=== PATIENT | male | born 1965 | race Caucasian/White ===

== ENCOUNTER 2020-11-01 09:11 | Emergency (ER) | payer BC ==
[2020-11-01] MEDS ORDERED: FLU VACC QS2020-21(6MOS UP)/PF 60 MCG/0.5 ML SYRINGE IM ONE (09:30)
[2020-11-01] MEDS ORDERED: Ondansetron 4 MG/2 ML SDV IVPUSH ONE (09:33)
[2020-11-01] MEDS ORDERED: Sodium Chloride 0.9% 10 ML Syringe FLUSH PRN (09:33)
[2020-11-01] MEDS ORDERED: Ketorolac 30 MG/ML SDV IVPUSH ONE (09:34)
[2020-11-01] MEDS ORDERED: HYDROmorphone 1 MG/ML Syringe IVPUSH ONE (09:34)
--- NOTE | 2020-11-01 09:39 | EDM.PDOC ---
ED HPI GENERAL MEDICAL PROBLEM - General Chief Complaint: Flank Pain Stated Complaint: R SIDE FLANK PAIN Time Seen by Provider: 11/01/20 09:29 Source of Information: Reports: Patient History Limitations: Reports: No Limitations - History of Present Illness INITIAL COMMENTS - FREE TEXT/NARRATIVE: The patient presents with right sided flank pain. This started about 1.5hours ago. He has nausea and vomiting with it. He has a history of kidney stones. He has no fever, chills, cough, chest pain or shortness of breath. He has no dysuria. His urine is darker. He does have some irritation at the tip of his penis. Onset: Sudden Duration: Hour(s): (1.5) Location: Reports: Back (rigth flank) Quality: Reports: Sharp Severity: Severe Improves with: Reports: None Worsens with: Reports: None Associated Symptoms: Reports: Nausea/Vomiting. Denies: Chest Pain, Cough, Fever/Chills, Headaches, Shortness of Breath Right Flank Pain Score (Numeric/FACES): 6 - Related Data Allergies Allergy/AdvReac Type Severity Reaction Status Date / Time No Known Allergies Allergy Verified 11/01/20 09:21 Home Meds: Home Meds Aspirin 81 mg PO BEDTIME 06/04/19 [History] Irbesartan 300 mg PO BEDTIME 06/04/19 [History] atorvaSTATin [Lipitor] 10 mg PO BEDTIME 06/04/19 [History] hydroCHLOROthiazide [Hydrochlorothiazide] 12.5 mg PO DAILY 06/04/19 [History] Hydrocodone/Acetaminophen [Hydrocodone-Acetamin 5-325 mg] 1 - 2 each PO Q6HR PRN #20 tablet 11/01/20 [Rx] Tamsulosin HCl [Flomax] 0.4 mg PO DAILY #7 cap.er.24h 11/01/20 [Rx] Past Medical History Cardiovascular History: Reports: High Cholesterol, Hypertension Genitourinary History: Reports: Renal Calculus Endocrine/Metabolic History: Reports: Obesity/BMI 30+ - Past Surgical History HEENT Surgical History: Reports: Oral Surgery GI Surgical History: Reports: Appendectomy, Hernia, Inguinal Social & Family History - Tobacco Use Tobacco Use Status *Q: Never Tobacco User - Caffeine Use Caffeine Use: Reports: None - Recreational Drug Use Recreational Drug Use: No - Living Situation & Occupation Living situation: Reports: , with Spouse, with Family (2 kids) 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 Denies: Abdominal Pain : Reports: Flank Pain (right). Denies: Dysuria, Frequency Musculoskeletal: Reports: Back Pain (right flank) ED EXAM, RENAL/ - Physical Exam Exam: See Below Exam Limited By: No Limitations General Appearance: Alert, No Apparent Distress Ears: Normal External Exam Nose: Normal Inspection Head: Atraumatic, Normocephalic Neck: Normal Inspection, Supple, Non-Tender Respiratory/Chest: No Respiratory Distress, Lungs Clear, Normal Breath Sounds Cardiovascular: Regular Rate, Rhythm, No Edema, No Murmur GI/Abdominal: Soft, Non-Tender, No Organomegaly, No Mass Back Exam: CVA Tenderness (R) Course - Vital Signs Last Recorded V/S: Last Vital Signs Temp 97 F 11/01/20 09:18 Pulse 77 11/01/20 09:18 Resp 18 11/01/20 09:18 BP 147/96 H 11/01/20 09:18 Pulse Ox 99 11/01/20 09:18 - Orders/Labs/Meds Orders: Active Orders 24 hr Category Date Time Status Influenza Vaccine Charge [RC] .DISCHARGE Care 11/01/20 09:24 Active Peripheral IV Care [RC] . DIRECTED Care 11/01/20 09:34 Active UA W/MICROSCOPIC [URIN] Stat Lab 11/01/20 09:33 Ordered Sodium Chloride 0.9% [Normal Saline] 1,000 ml Med 11/01/20 09:45 Active IV ASDIRECTED Sodium Chloride 0.9% [Saline Flush] Med 11/01/20 09:33 Active 10 ml FLUSH ASDIRECTED PRN ED Antiemetic Medication Reflex [OM.PC] Stat Oth 11/01/20 09:34 Ordered Peripheral IV Insertion Adult [OM.PC] Stat Oth 11/01/20 09:33 Ordered Medication Orders Sodium Chloride (Normal Saline) 1,000 mls @ 125 mls/hr IV ASDIRECTED [facility] Admin: 11/01/20 10:01 Dose: 125 mls/hr Documented by: MONTY Sodium Chloride (Saline Flush) 10 ml FLUSH ASDIRECTED PRN PRN Reason: Keep Vein Open Last Admin: 11/01/20 10:01 Dose: 10 ml Documented by: MONTY Labs: Laboratory Tests 11/01/20 11/01/20 Range/Units 09:20 09:20 WBC 8.54 (4.23-9.07) K/mm3 RBC 5.31 (4.63-6.08) M/mm3 Hgb 16.0 (13.7-17.5) gm/dl Hct 46.9 (40.1-51.0) % MCV 88.3 (79.0-92.2) fl MCH 30.1 (25.7-32.2) pg MCHC 34.1 (32.2-35.5) g/dl RDW Std Deviation 42.9 (35.1-43.9) fL Plt Count 304 (163-337) K/mm3 MPV 9.1 L (9.4-12.3) fl Neut % (Auto) 65.8 (34.0-67.9) % Lymph % (Auto) 22.6 (21.8-53.1) % Garrard % (Auto) 8.5 (5.3-12.2) % Eos % (Auto) 2.2 (0.8-7.0) Baso % (Auto) 0.4 (0.1-1.2) % Neut # (Auto) 5.62 H (1.78-5.38) K/mm3 Lymph # (Auto) 1.93 (1.32-3.57) K/mm3 Garrard # (Auto) 0.73 (0.30-0.82) K/mm3 Eos # (Auto) 0.19 (0.04-0.54) K/mm3 Baso # (Auto) 0.03 (0.01-0.08) K/mm3 Sodium 142 (136-145) mEq/L Potassium 3.5 (3.5-5.1) mEq/L Chloride 104 (98-107) mEq/L Carbon Dioxide 25 (21-32) mEq/L Anion Gap 16.5 H (5-15) BUN 18 (7-18) mg/dL Creatinine 1.4 H (0.7-1.3) mg/dL Est Cr Clr Drug Dosing 70.13 mL/min Estimated GFR (MDRD) 53 (>60) mL/min BUN/Creatinine Ratio 12.9 L (14-18) Glucose 124 H (74-106) mg/dL Calcium 8.9 (8.5-10.1) mg/dL Total Bilirubin 0.8 (0.2-1.0) mg/dL AST 23 (15-37) U/L ALT 44 (16-63) U/L Alkaline Phosphatase 71 (46-116) U/L Total Protein 7.8 (6.4-8.2) g/dl Albumin 4.0 (3.4-5.0) g/dl Globulin 3.8 gm/dL Albumin/Globulin Ratio 1.1 (1-2) Lipase 119 (73-393) U/L Meds: Medications Generic Name Dose Route Start Last Admin Trade Name Freq PRN Reason Stop Dose Admin Sodium Chloride 1,000 mls @ 125 mls/hr 11/01/20 09:45 11/01/20 10:01 Normal Saline IV 125 mls/hr ASDIRECTED TOBIN Administration Sodium Chloride 10 ml 11/01/20 09:33 11/01/20 10:01 Saline Flush FLUSH 10 ml ASDIRECTED PRN Administration Keep Vein Open Discontinued Medications Generic Name Dose Route Start Last Admin Trade Name Freq PRN Reason Stop Dose Admin Hydromorphone HCl 1 mg 11/01/20 09:34 11/01/20 09:59 Dilaudid IVPUSH 11/01/20 09:35 1 mg ONETIME ONE Administration Influenza Virus Vaccine 60 mcg 11/01/20 09:30 11/01/20 10:06 Fluzone Quad [id number] Syringe IM 11/01/20 09:31 60 mcg .ONCE ONE Administration Ketorolac Tromethamine 30 mg 11/01/20 09:34 11/01/20 10:02 Toradol IVPUSH 11/01/20 09:35 30 mg ONETIME ONE Administration Ondansetron HCl 4 mg 11/01/20 09:33 11/01/20 10:02 Zofran IVPUSH 11/01/20 09:34 4 mg ONETIME ONE Administration - Re-Assessments/Exams Free Text/Narrative Re-Assessment/Exam: 11/01/20 09:38 I ordered an IV NS at 125mL/hr, zofran 4mg IV, toradol 30mg IV, dilaudid 1mg IV, UA, labs and a CT of his abdomen and pelvis without IV and oral contrast. 11/01/20 11:38 His labs look good. His CT shows small nonobstructing stone within the mid right kidney. Small obstructing ureteral stone within the distal right ureter close to the UVJ measuring approximately 2.5-3mm. Other findings that are incidental. He cannot urinate for us. I will do an outpatient order. Departure - Departure Time of Disposition: 11:45 Disposition: Home, Self-Care 01 Condition: Good Clinical Impression: Ureteric colic, Kidney stone on right side, Ureteral calculus, right - Discharge Information *PRESCRIPTION DRUG MONITORING PROGRAM REVIEWED*: Not Applicable *COPY OF PRESCRIPTION DRUG MONITORING REPORT IN PATIENT CAROL: Not Applicable Prescriptions: Tamsulosin HCl [Flomax] 0.4 mg PO DAILY #7 cap.er.24h Hydrocodone/Acetaminophen [Hydrocodone-Acetamin 5-325 mg] 1 - 2 each PO Q6HR PRN #20 tablet PRN Reason: Pain Referrals: Viral Garcia MD [Primary Care Provider] - 1 Week Forms: ED Department Discharge Additional Instructions: Drink plenty of fluids. Take the flomax daily. Take motrin or tylenol for pain. If that does not help, try the hydrocodone. Please return if you are worse. Sepsis Event Note (ED) - Evaluation Sepsis Screening Result: No Definite Risk - Focused Exam Vital Signs: Vital Signs Temp Pulse Resp BP Pulse Ox 11/01/20 09:18 97 F 77 18 147/96 H 99 - My Orders Last 24 Hours: My Active Orders 11/01/20 09:24 Influenza Vaccine Charge [RC] .DISCHARGE 11/01/20 09:33 UA W/MICROSCOPIC [URIN] Stat Sodium Chloride 0.9% [Saline Flush] 10 ml FLUSH ASDIRECTED PRN Peripheral IV Insertion Adult [OM.PC] Stat 11/01/20 09:34 Peripheral IV Care [RC] . DIRECTED ED Antiemetic Medication Reflex [OM.PC] Stat 11/01/20 09:45 Sodium Chloride 0.9% [Normal Saline] 1,000 ml IV ASDIRECTED - Assessment/Plan Last 24 Hours: My Active Orders 11/01/20 09:24 Influenza Vaccine Charge [RC] .DISCHARGE 11/01/20 09:33 UA W/MICROSCOPIC [URIN] Stat Sodium Chloride 0.9% [Saline Flush] 10 ml FLUSH ASDIRECTED PRN Peripheral IV Insertion Adult [OM.PC] Stat 11/01/20 09:34 Peripheral IV Care [RC] . DIRECTED ED Antiemetic Medication Reflex [OM.PC] Stat 11/01/20 09:45 Sodium Chloride 0.9% [Normal Saline] 1,000 ml IV ASDIRECTED
[2020-11-01] MEDS ORDERED: Sodium Chloride 0.9% 1,000 ML IV SCH (09:45)
--- NOTE | 2020-11-01 10:17 | CT ---
CT abdomen and pelvis Technique: Multiple axial sections were obtained from above the dome of the diaphragm inferiorly through the pubic symphysis. Intravenous and oral contrast was not utilized. Reconstructed coronal and axial images were obtained. Findings: Kidneys: Small 2-3 mm calcification is seen within the mid right kidney. Left kidney shows no abnormal calcifications. Right ureter is slightly prominent down to the UVJ. This finding is caused by a small obstructing stone measuring about 2.5-3 mm within the distal right ureter close to the UVJ. No other ureteral calculi are seen. Other findings: Visualized lung bases show nothing acute. Liver and spleen show no focal abnormality. Adrenal glands show no nodule. Gallbladder contains no calcified gallstones. Pancreas shows no discrete abnormality. Aorta shows no aneurysm. No retroperitoneal adenopathy or mesenteric abnormalities are seen. No additional pelvic mass or adenopathy is seen. Small fat-containing right inguinal hernia is noted. Appendix is not visualized with certainty. Bone window settings were reviewed. Mild endplate spurring is seen throughout the spine. Degenerative change is noted within both hips, worse on the right side. No acute osseous finding is appreciated. Impression: 1. Small nonobstructing stone within the mid right kidney. 2. Small obstructing ureteral stone within the distal right ureter close to the UVJ measuring approximately 2.5-3 mm. 3. Other findings as noted above which are nonacute. Diagnostic code #3
[2020-11-01] MEDS ORDERED: HYDROmorphone 0.5 MG/0.5 ML Syringe IVPUSH ONE (11:38)
== END 2020-11-01 12:22 | disposition home or self-care (01) ==
LOC: JD.ED 09:11
DX: N20.2 Calculus of kidney with calculus of ureter (principal); E78.00 Pure hypercholesterolemia, unspecified; I10 Essential (primary) hypertension; E66.9 Obesity, unspecified; Z68.30 Body mass index [BMI] 30.0-30.9, adult; Z79.82 Long term (current) use of aspirin; Z79.899 Other long term (current) drug therapy; Z23 Encounter for immunization
CPT/HCPCS: 36415; 74176; 74176-26; 80053; 81003; 83690; 85025; 90686; 96374; 96375; 96376; 99284; 99284-25; G0008; J1170; J1885; J2405; J7030

== ENCOUNTER 2021-08-09 14:59 | Emergency (ER) | payer BC ==
[2021-08-09] MEDS ORDERED: Orphenadrine 100 MG Tab.ER PO ONE (15:32)
--- NOTE | 2021-08-09 15:36 | EDM.PDOC ---
ED HPI GENERAL MEDICAL PROBLEM - General Chief Complaint: Back Pain or Injury Stated Complaint: R SIDE RIB PAIN Time Seen by Provider: 08/09/21 15:20 Source of Information: Reports: Patient, RN Notes Reviewed History Limitations: Reports: No Limitations - History of Present Illness INITIAL COMMENTS - FREE TEXT/NARRATIVE: Patient is a 56-year-old male who presents to the ER for evaluation of right rib cage pain. Patient states that he was working on a tractor, when he stepped down onto a tire, that was apparently loose, and he fell backwards down onto the tire, and hit his right rib cage on a metal bar. He does have quite a large scrape to his posterior lateral right chest wall. There is 1 area of tenderness, at the very bottom portion of the rib cage. Patient states that he took some Tylenol prior to coming to the ER that seems to help the pain he cannot take a deep breath without much difficulty, but states they are just muscle spasms that are causing him issues. 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: NSAIDS - Related Data Allergies Allergy/AdvReac Type Severity Reaction Status Date / Time No Known Allergies Allergy Verified 11/01/20 09:21 Home Meds: Home Meds Aspirin 81 mg PO BEDTIME 06/04/19 [History] Irbesartan 300 mg PO BEDTIME 06/04/19 [History] atorvaSTATin [Lipitor] 10 mg PO BEDTIME 06/04/19 [History] hydroCHLOROthiazide [Hydrochlorothiazide] 12.5 mg PO DAILY 06/04/19 [History] Tamsulosin HCl [Flomax] 0.4 mg PO DAILY #7 cap.er.24h 11/01/20 [Rx] Orphenadrine [Norflex] 100 mg PO BID PRN #20 tab 08/09/21 [Rx] Past Medical History Cardiovascular History: Reports: High Cholesterol, Hypertension Genitourinary History: Reports: Renal Calculus Endocrine/Metabolic History: Reports: Obesity/BMI 30+ - Past Surgical History HEENT Surgical History: Reports: Oral Surgery GI Surgical History: Reports: Appendectomy, Hernia, Inguinal Social & Family History - Caffeine Use Caffeine Use: Reports: None - Living Situation & Occupation Living situation: Reports: , with Spouse, with Family (2 kids) 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 ED EXAM, GENERAL - Physical Exam Exam: See Below Exam Limited By: No Limitations General Appearance: Alert, WD/WN, No Apparent Distress Respiratory/Chest: No Respiratory Distress, Lungs Clear, Normal Breath Sounds, No Accessory Muscle Use, Other (Right posterior lateral rib cage pain/tenderness) Cardiovascular: Normal Peripheral Pulses, Regular Rate, Rhythm, No Edema Extremities: Normal Inspection, Normal Capillary Refill Neurological: Alert, Oriented, Normal Cognition, No Motor/Sensory Deficits Psychiatric: Normal Affect, Normal Mood Skin Exam: Warm, Dry, Normal Color, No Rash, Other (Superficial skin abrasion, on the posterior lateral rib cage/chest wall, this is linear in nature, and measures about 1 foot in length by about 3 inches wide. No active bleeding.) Course - Vital Signs Last Recorded V/S: Last Vital Signs Temp 97.5 F 08/09/21 15:13 Pulse 82 08/09/21 15:13 Resp 14 08/09/21 15:13 BP 146/100 H 08/09/21 15:13 Pulse Ox 100 08/09/21 15:13 - Orders/Labs/Meds Orders: Active Orders 24 hr Category Date Time Status Ribs 2V w Chest Rt [CR] Stat Exams 08/09/21 15:32 Ordered Meds: Medications Discontinued Medications Generic Name Dose Route Start Last Admin Trade Name Suleman PRN Reason Stop Dose Admin Orphenadrine Citrate 100 mg 08/09/21 15:32 08/09/21 15:39 Orphenadrine 100 Mg Tab.Er PO 08/09/21 15:33 100 mg ONETIME ONE Administration - Re-Assessments/Exams Free Text/Narrative Re-Assessment/Exam: 08/09/21 15:35 Patient presents to the ER for the evaluation of his rib cage pain, go ahead and get x-rays of the ribs for evaluation, and give him Norflex for muscle spasms, as he states that this seems to be the worst portion of the pain. 08/09/21 16:48 The patient's x-rays have been obtained, there is a rib fracture noted. Hard to determine which one this can be at this time, is on the lower portion of the right-sided rib cage exactly where he is having pain, official radiology read is still pending. 08/09/21 17:09 The patient was reassessed at bedside, states he is feeling better at this time. We will go ahead and discharge him home with a prescription for Norflex have him follow some conservative measures, and have the nurse place an Jeyson bandage around his chest, as he states he feels better when his back as some support. Departure - Departure Time of Disposition: 17:10 Disposition: Home, Self-Care 01 Condition: Good Clinical Impression: Contusion of back wall of thorax Qualifiers: Encounter type: initial encounter Thoracic wall location detail: right Qualified Code(s): S20.221A - Contusion of right back wall of thorax, initial encounter Closed rib fracture Qualifiers: Encounter type: initial encounter Rib fracture type: single rib Laterality: right Qualified Code(s): S22.31XA - Fracture of one rib, right side, initial encounter for closed fracture - Discharge Information *PRESCRIPTION DRUG MONITORING PROGRAM REVIEWED*: No Instructions: Rib Fracture, [id number] Referrals: Viral Garcia MD [Primary Care Provider] - Forms: ED Department Discharge Additional Instructions: You have been evaluated in the ED for your injury sustained after your fall. Your x-ray demonstrated a rib fracture on the right lower rib cage. You also have overlying contusion, or bruise that is going to be bothersome for a few days. Please note that you will likely feel pretty stiff and sore for at least 48 to 72 hours but should get better after this. Please use ice as tolerated to the affected area. Please try to elevate the affected area to relieve swelling. You were given an Jeyson wrap, to provide some support to this area, please use as tolerated for further pain management. You may take Tylenol 500 mg or ibuprofen 600mg q6 hrs for pain relief. Please do so until you have a tolerable level of pain with activity. Do not exceed 4000mg Tylenol or 3200mg ibuprofen in a 24 hour time period. He had been given a prescription for Norflex, this is a muscle relaxer. You may take 1 tablet 2 times a day as needed for ongoing muscle spasms. This medication was electronically sent to the [place] [facility] located in the [employer] store. Please follow-up with your regular provider for re-evaluation, if your injury is not feeling much better in roughly 7 to 10 days time. Please return to ED if your symptoms should change or worsen. Sepsis Event Note (ED) - Focused Exam Vital Signs: Vital Signs Temp Pulse Resp BP Pulse Ox 08/09/21 15:13 97.5 F 82 14 146/100 H 100 - My Orders Last 24 Hours: My Active Orders 08/09/21 15:32 Ribs 2V w Chest Rt [CR] Stat - Assessment/Plan Last 24 Hours: My Active Orders 08/09/21 15:32 Ribs 2V w Chest Rt [CR] Stat
--- NOTE | 2021-08-09 17:58 | CR ---
Chest and right ribs: Frontal view of the chest was obtained as well as 3 views of the right ribs. Comparison: No prior chest or rib study is available. Heart size and mediastinum are within normal limits. No pneumothorax is seen. Lungs are clear with no acute parenchymal change. Mildly displaced fracture is seen within the right eighth rib. No other additional rib fracture is seen although nondisplaced fracture could be missed. Impression: 1. Mildly displaced right eighth rib fracture. 2. Nothing else acute is otherwise seen on frontal chest x-ray or three-view right rib exam. Diagnostic code #3
== END 2021-08-09 17:20 | disposition home or self-care (01) ==
LOC: JD.ED 14:59
DX: S22.31XA Fracture of one rib, right side, initial encounter for closed fracture (principal); S20.221A Contusion of right back wall of thorax, initial encounter; E78.00 Pure hypercholesterolemia, unspecified; I10 Essential (primary) hypertension; E66.9 Obesity, unspecified; Z68.44 Body mass index [BMI] 60.0-69.9, adult; Z79.82 Long term (current) use of aspirin; Z79.899 Other long term (current) drug therapy; W01.0XXA Fall on same level from slipping, tripping and stumbling without subsequent striking against object, initial encounter
CPT/HCPCS: 71101; 99283; A9270

== ENCOUNTER 2024-12-25 20:35 | Emergency (ER) | payer BC ==
[2024-12-25] MEDS ORDERED: Sodium Chloride 0.9% 10 ML Syringe FLUSH PRN (20:54)
[2024-12-25 21:07] LABS: BASOPHILS PERCENT AUTO 0.3 % (0.0-1.0); EOSINOPHILS ABSOLUTE AUTO 0.1 K/mm3 (0.0-0.4); EOSINOPHILS PERCENT AUTO 0.6 % (0.0-6.0); HEMATOCRIT 44.5 % (42.0-52.0); HEMOGLOBIN 15.5 gm/dl (14.0-18.0); IMMATURE GRAN ABSOLUTE AUTO 0.05 K/mm3 (0.00-0.05); IMMATURE GRAN PERCENT AUTO 0.5 % (0.0-0.4); LYMPHOCYTES ABSOLUTE AUTO 2.1 K/mm3 (1.0-4.8); LYMPHOCYTES PERCENT AUTO 20.6 % (24.0-44.0); MEAN CORPUSCULAR HEMOGLOBIN 30.3 pg (28.0-32.0); MEAN CORPUSCULAR HGB CONC 34.8 g/dl (32.0-36.0); MEAN CORPUSCULAR VOLUME 86.9 fl (83.0-99.0); MONOCYTES PERCENT AUTO 9.5 % (0.0-8.0); NEUTROPHILS PERCENT AUTO 68.5 % (41.0-71.0); PLATELET COUNT,PLT 255 K/mm3 (150-400); RED BLOOD CELL COUNT 5.12 M/mm3 (4.52-5.90); WHITE BLOOD CELL COUNT,WBC 10.22 K/mm3 (3.9-11.3)
[2024-12-25] MEDS: Apixaban 5 MG Tab PO ONE (21:23)
[2024-12-25 21:49] LABS: A/G RATIO 1.1 (1-2); ALBUMIN 4.1 g/dl (3.4-5.0); ANION GAP 15.1 (5-15); BILIRUBIN TOTAL 0.9 mg/dL (0.2-1.0); BUN/CREATININE RATIO 14.6 (14-18); CALCIUM 8.7 mg/dL (8.5-10.1); CREATININE 1.3 mg/dL (0.7-1.3); EST CRCL DRUG DOSING (CG) 72.01 mL/min; POTASSIUM,K 3.1 mEq/L (3.5-5.1); PROTEIN TOTAL,TP 7.8 g/dl (6.4-8.2)
[2024-12-25] MEDS: Apixaban 5 MG Tab PO STA (22:44)
== END 2024-12-25 23:01 | disposition home or self-care (01) ==
LOC: JD.ED 20:35
DX: I26.99 Other pulmonary embolism without acute cor pulmonale (principal); I10 Essential (primary) hypertension; E78.00 Pure hypercholesterolemia, unspecified; E66.9 Obesity, unspecified; Z90.49 Acquired absence of other specified parts of digestive tract; Z79.899 Other long term (current) drug therapy; Z79.82 Long term (current) use of aspirin
CPT/HCPCS: 36415; 80053; 83735; 84484; 85025; 93005; 93971; 99285; A9270; 93010; 99284